=== PATIENT | male | born 1960 | race Caucasian/White ===

== ENCOUNTER 2023-11-06 09:31 | Outpatient (CLI) | payer OTHER, SELFPAY ==
--- NOTE | ~2023-11-06 | MR_ITS ---
EXAMINATION: MR lower leg LT wo con DATE: 11/06/2023 10:13 INDICATION: Left lower leg pain. TECHNIQUE: Magnetic resonance imaging (MRI) of the left lower leg was performed without intravenous c ontrast. COMPARISON: None. FINDINGS: Bone alignment is normal. No fracture. The musculature is normal. There is widespread subcu taneous edema. Varicose veins are noted. IMPRESSION: 1. Widespread subcutaneous edema in left lower leg. 2. Left lower leg varicose veins. Reviewed, dictated and finalized at location A.
== END 2023-11-06 09:32 ==
LOC: MICIMG 09:33
PROVIDERS: PCP Family Medicine; Visit Provider Family Medicine
DX: M79.605 Pain in left leg (principal); S86.119A Strain of other muscle(s) and tendon(s) of posterior muscle group at lower leg level, unspecified leg, initial encounter; X58.XXXA Exposure to other specified factors, initial encounter; I83.92 Asymptomatic varicose veins of left lower extremity
CPT/HCPCS: 73718

== ENCOUNTER 2023-11-19 09:24 | Outpatient (CLI) | payer OTHER, SELFPAY ==
--- NOTE | ~2023-11-19 | US_ITS ---
EXAMINATION: US_VDOPREFBI_US DATE: 11/19/2023 10:28 INDICATION: Chronic peripheral venous insufficiency. TECHNIQUE: Grayscale ultrasound images without and with compression and Doppler ultrasound images of the bilateral lower extremity veins were obtained. COMPARISON: None. FINDINGS: The visualized portions of right common femoral vein, profunda (deep) femoral vein, femoral vein, pop liteal vein, peroneal veins, and posterior tibial veins are patent. Right greater saphenous vein manjit ures 9 mm in the upper thigh, 5 mm in the lower thigh, and 3 mm in the calf. There is greater than 5 seconds reflux in the greater saphenous vein in the lower thigh and calf. Right small saphenous vein measures 2 mm in the upper calf and 4 mm in the lower calf without reflux. The visualized portions of left common femoral vein, profunda femoral vein, femoral vein, popliteal v ein, peroneal veins, and posterior tibial veins are patent. Left greater saphenous vein measures 4 mm in the upper thigh, 8 mm in the lower thigh, and 6 mm in the calf. There is greater than 5 seconds r eflux in the greater saphenous vein in the lower thigh and 1.4 s reflux in greater saphenous vein in the calf. Left small saphenous vein measures 4 mm in the upper calf and 4 mm in the lower calf withou t reflux. IMPRESSION: 1. Reflux in the bilateral greater saphenous veins. Reviewed, dictated and finalized at location A.
== END 2023-11-19 09:25 | disposition home or self-care (01) ==
LOC: ANHIMG 09:29
PROVIDERS: PCP Family Medicine; Visit Provider Orthopaedic Surgery
DX: I87.2 Venous insufficiency (chronic) (peripheral) (principal)
CPT/HCPCS: 93970